=== PATIENT | female | born 1960 | race African-American/Black ===

== ENCOUNTER 2020-01-12 15:56 | Inpatient (IN) | payer OTHER ==
[2020-01-12 17:46] VITALS: BMI 19.5
--- NOTE | 2020-01-12 17:55 | HP ---
COWS - Scale Resting Pulse: 0= [place] 80 or Below Sweatin= Chills/Flushing Restless Observation: 1= Difficult to Sit Still Pupil Size: 1= Pupils >than Normal Bone or Joint Aches: 0= None Runny Nose/ Eye Tearin= Nasal Congestion GI Upset > 30mins: 5=Frequent Vomit/Diarrhea Tremor Observation: 1= Tremor [place], Not Seen Yawning Observation: 0= None Anxiety or Irritability: 2=Irritable/Anxious Goose Flesh Skin: 0=Smooth Skin COWS Score: 12 CIWA Score Nausea/Vomitin-Int. Nausea w/Dry Heave Muscle Tremors: 1-None Visible, but [place] Anxiety: 2 Agitation: 1-Slight > Activity Paroxysmal Sweats: No Perspiration Orientation: 1-Uncertain about Date Tacttile Disturbances: 1-Very Mild Itch/Numbness Auditory Disturbances: 0-None Visual Disturbances: 0-None Headache: 3-Moderate CIWA-Ar Total Score: 13 - Admission Criteria [facility]ASAS Guidelines: Admission for Medically Managed Detox: Requires at least one of the followin. CIWA greater than 12 2. Seizures within the past 24 hours 3. Delirium tremens within the past 24 hours 4. Hallucinations within the past 24 hours 5. Acute intervention needed for co occurring medical disorder 6. Acute intervention needed for co occurring psychiatric disorder 7. Severe withdrawal that cannot be handled at a lower level of care (continued vomiting, continued diarrhea, abnormal vital signs) requiring intravenous medication and/or fluids 8. Admitting History and Physical - Admission History of Present Illness: Patient is a 59 y.o. F PMHx HTN, sciatica LLE, presenting to [facility] for substance abuse. Patient substance abuse consists of [id number] bags a day, 0 overdose. Alcohol 6 pack 24oz malt, 1 pint vodka a day, no seizures, 1 blackout months ago, (+) eye tax appraiser. Crack 30$ a day. Limitations to Obtaining History: No Limitations - Past Medical History [employer]: No: Seizure Cardiovascular: Yes: HTN. No: Hyperlipdemia Pulmonary: No: COPD Gastrointestinal: No: GERD, GI Bleed Hepatobiliary: No: Hepatitis A, Hepatitis B, Hepatitis C Heme/Onc: No: B12 Deficiency Infectious Disease: No: HIV, STD's, Tuberculosis Psych: Yes: Anxiety, Depression Musculoskeletal: Yes: Chronic low back pain - Past Surgical History Additional Past Surgical History: c section, laceration repair abdomen - Smoking History Smoking history: Current every day smoker Have you smoked in the past 12 months: Yes Aproximately how many cigarettes per day: 7 - Alcohol/Substance Use Hx Alcohol Use: Yes History of Substance Use: reports: Cocaine - Social History Usual Living Arrangement: Yes: Other (homeless) ADL: Independent History of Recent Travel: No Admission ROS [facility] - HPI Allergies/Adverse Reactions: Allergies Allergy/AdvReac Type Severity Reaction Status Date / Time No Known Allergies Allergy Verified 01/12/20 17:57 Exam Limitations: No Limitations - Ebola screening Have you traveled outside of the country in the last 21 days: No Have you had contact with anyone from an Ebola affected area: No Have you been sick,other than usual withdrawal symptoms: No Do you have a fever: No - Review of Systems Constitutional: No Symptoms Reported EENT: denies: Blurred Vision, Double Vision Respiratory: denies: Cough, Shortness of Breath Cardiac: denies: Chest Pain, Lightheadedness GI: reports: Diarrhea, Nausea, Vomiting. denies: Constipated : reports: No Symptoms Reported Musculoskeletal: reports: Back Pain Integumentary: reports: No Symptoms Reported. denies: Dryness, Erythema Neuro: reports: Headache, Dizziness Hematology: reports: No Symptoms Reported Psychiatric: reports: No Sypmtoms Reported, Judgement Intact, Mood/Affect Appropiate, Orientated x3, Depressed Patient History - Smoking Cessation Smoking history: Current every day smoker Initiated information on smoking cessation: Yes 'Breaking Loose' booklet given: 01/12/20 Admission Physical Exam [facility] - Vital Signs Vital Signs: Vital Signs - 24 hr 01/12/20 17:43 Temperature 98.1 F Pulse Rate 66 Respiratory 18 Rate Blood Pressure 119/72 - Physical General Appearance: Yes: Within Normal Limits, No Apparent Distress, Appropriately Dressed Respiratory: Yes: No Respiratory Distress, No Accessory Muscle Use, Wheezing Cardiology: Yes: Regular Rhythm, Regular Rate Abdominal: Yes: Normal Bowel Sounds, Non Tender, Flat, Soft. No: Distended, Rebound, Tenderness Back: Yes: Normal Inspection Extremities: Yes: Normal Inspection, Non-Tender Neurological: Yes: Fully Oriented, Alert, Normal Mood/Affect, Normal Response, Numbness (LLE) Integumentary: Yes: Within Normal Limits, Normal Color, Warm - Diagnostic (1) Hypertension Current Visit: Yes Status: Acute (2) Alcohol abuse Current Visit: Yes Status: Acute (3) Alcohol abuse with alcohol-induced disorder Current Visit: Yes Status: Acute (4) Heroin abuse Current Visit: Yes Status: Acute (5) Crack cocaine use Current Visit: Yes Status: Acute (6) Nicotine abuse Current Visit: Yes Status: Acute Cleared for Admission S - Detox or Rehab [facility] Level of Care: Medically Managed Detox Regimen/Protocol: Methadone/Librium Breathalyzer - Breathalyzer Breathalyzer: 0 Vital Signs - Vital Signs Vital signs refused: No Temperature: 98.1 F Pulse Rate: 66 Respiratory Rate: 18 Blood Pressure: 119/72 - Height Height: 1.63 m - Weight Weight: 51.71 kg - BMI Body Mass Index (BMI): 19.5 Urine Drug Screen - Test Device Lot number: [id number] Expiration date: 12/13/21 - Control Is test valid?: Yes - Results Drug screen NEGATIVE: No Urine drug screen results: SUZANNE-Cocaine, FEN-Fentanyl, MOP-Opiates, MTD- Methadone, BZO-Benzodiazepines, BUP-Suboxone Inpatient Rehab Admission - Rehab Decision to Admit Inpatient rehab admission?: No
[2020-01-12] MEDS ORDERED: IBUPROFEN 400 MG TABLET (FP) PO PRN (18:01)
[2020-01-12] MEDS ORDERED: NICOTINE POLACRILEX 2 MG GUM BUC PRN (18:01)
[2020-01-12] MEDS ORDERED: METHOCARBAMOL 500 MG TABLET PO PRN (18:01)
[2020-01-12] MEDS ORDERED: MENTHOL/PHENOL 1 EACH UD MM PRN (18:01)
[2020-01-12] MEDS ORDERED: chlordiazePOXIDE HCL 25 MG CAPSULE PO PRN (18:01)
[2020-01-12] MEDS ORDERED: ONDANSETRON *ODT* 4 MG TABLET SL ONE (18:01)
[2020-01-12] MEDS ORDERED: ACETAMINOPHEN 325 MG TABLET (FP) PO PRN ×2 (18:01)
[2020-01-12] MEDS ORDERED: BISMUTH SUBSALICYLATE 524 MG/30 ML UD PO PRN (18:01)
[2020-01-12] MEDS ORDERED: MAG HYDROX/AL HYDROX/SIMETH 30 ML UNIT-DOSE CUP PO PRN (18:01)
[2020-01-12] MEDS ORDERED: cloNIDine HCL 0.1 MG TABLET PO PRN (18:01)
[2020-01-12] MEDS ORDERED: METHADONE HCL 10 MG TABLET (FOR DETOX USE ONLY) PO ONE (18:01)
[2020-01-12] MEDS ORDERED: MAGNESIUM HYDROX 2400MG/30ML ORAL SUSPENSION 30 ML CUP PO PRN (18:01)
[2020-01-12] MEDS ORDERED: MAGNESIUM CITRATE 300 ML BOTTLE PO PRN (18:01)
[2020-01-12] MEDS ORDERED: NAPROXEN 500 MG TABLET PO ONE (18:06)
[2020-01-12] MEDS: THIAMINE HCL 100 MG TABLET (FP) PO SCH (21:36)
[2020-01-12] MEDS: hydrOXYzine PAMOATE 25 MG CAPSULE (FP) PO SCH (21:42)
[2020-01-12] MEDS: MELATONIN 5 MG TABLETS PO SCH (23:35)
[2020-01-12] MEDS: chlordiazePOXIDE HCL 25 MG CAPSULE PO SCH (23:35)
[2020-01-13] MEDS: hydrOXYzine PAMOATE 25 MG CAPSULE (FP) PO SCH ×6 (05:39→22:51)
[2020-01-13] MEDS: chlordiazePOXIDE HCL 25 MG CAPSULE PO SCH ×4 (05:40→22:50)
[2020-01-13] MEDS ORDERED: METHADONE HCL 10 MG TABLET (FOR DETOX USE ONLY) ONE (08:57)
[2020-01-13] MEDS ORDERED: METHADONE HCL 5 MG TABLET (FOR DETOX USE ONLY) ONE (08:58)
[2020-01-13] MEDS ORDERED: METHADONE (DETOX) 20 MG, METHADONE (DETOX) 5 MG PO ONE (10:00)
[2020-01-13] MEDS: PRENATAL VITAMINS W/ FOLIC ACID TABLET (FP) PO SCH (10:17)
[2020-01-13] MEDS: NICOTINE 7 MG/24 HOURS TOPICAL PATCH TD SCH (10:17)
--- NOTE | 2020-01-13 10:19 | PN ---
Teaching Attending Note Name of Resident: Rene Manuel ATTENDING PHYSICIAN STATEMENT I saw and evaluated the patient. I reviewed the resident's note and discussed the case with the resident. I agree with the resident's findings and plan as documented. SUBJECTIVE: OBJECTIVE: ASSESSMENT AND PLAN: Agree with resident's findings and detox plan.
[2020-01-13 10:55] LABS: HEMATOCRIT 34.6 % (32.4-45.2); HEMOGLOBIN 11.5 GM/dL (10.7-15.3); MCH 34.7 pg (25.7-33.7); MCHC 33.2 g/dl (32.0-36.0); MEAN CELL VOLUME 104.7 fl (80-96); MEAN PLT VOLUME 7.3 fl (7.5-11.1); PLATELET COUNT 333 K/MM3 (134-434); RDW 13.7 % (11.6-15.6); WHITE BLOOD COUNT 4.5 K/mm3 (4.0-10.0)
[2020-01-13 11:13] LABS: ALBUMIN 3.2 g/dl (3.4-5.0); BILIRUBIN,TOTAL 0.6 mg/dL (0.2-1); BLOOD UREA NITROGEN 8.7 mg/dL (7-18); CALCIUM 9.5 mg/dL (8.5-10.1); CREATININE 0.7 mg/dL (0.55-1.3); POTASSIUM 4.5 mmol/L (3.5-5.1)
--- NOTE | 2020-01-13 15:27 | PN ---
[facility] CIWA - CIWA Score Nausea/Vomitin-Mild Nausea/No Vomiting Muscle Tremors: 2 Anxiety: 2 Agitation: 2 Paroxysmal Sweats: No Perspiration Orientation: 0-Oriented Tacttile Disturbances: 1-Very Mild Itch/Numbness Auditory Disturbances: 0-None Visual Disturbances: 0-None Headache: 2-Mild CIWA-Ar Total Score: 10 [facility] COWS - Scale Resting Pulse: 0= [place] 80 or Below Sweatin= No chills or Flushing Restless Observation: 0= Sits Still Pupil Size: 1= Pupils >than Normal Bone or Joint Aches: 1= Mild Discomfort Runny Nose/ Eye Tearin= Runny Nose/Eyes GI Upset > 30mins: 1= Stomach Cramp Tremor Observation of Outstretched Hands: 2= Slight Tremor Visible Yawning Observation: 1= 1-2x During Session Anxiety or Irritability: 2=Irritable/Anxious Goose Flesh Skin: 0=Smooth Skin COWS Score: 10 [facility] Progress Note (SOAP) Subjective: alert,irritable,anxious,interrupted sleep,pain in the body and back,ambulate with own walker Objective: 01/13/20 15:25 Vital Signs Temperature 97.8 F 01/13/20 12:41 Pulse Rate 60 01/13/20 12:41 Respiratory Rate 16 01/13/20 12:41 Blood Pressure 107/68 01/13/20 12:41 O2 Sat by Pulse Oximetry (%) 99 01/13/20 12:41 Assessment: 01/13/20 15:26 withdrawal symptom Plan: continue detox methadone and librium regimen,ambulate with walker,fall precaution
--- NOTE | 2020-01-13 15:30 | EKG ---
Test Reason : Blood Pressure : / mmHG Vent. Rate : 056 BPM Atrial Rate : 056 BPM P-R Int : 192 ms QRS Dur : 086 ms QT Int : 446 ms P-R-T Axes : 039 -07 -17 degrees QTc Int : 430 ms SINUS BRADYCARDIA ANTERIOR INFARCT , AGE UNDETERMINED ABNORMAL ECG NO PREVIOUS ECGS AVAILABLE Confirmed by HUMAIRA SYKES MD ([id number]) on 01/13/2020 3:30:05 PM Referred By: Confirmed By:HUMAIRA SYKES MD
[2020-01-13] MEDS: THIAMINE HCL 100 MG TABLET (FP) PO SCH (22:50)
[2020-01-13] MEDS: MELATONIN 5 MG TABLETS PO SCH (22:51)
[2020-01-14] MEDS: hydrOXYzine PAMOATE 25 MG CAPSULE (FP) PO SCH ×3 (07:01→14:15)
[2020-01-14] MEDS: chlordiazePOXIDE HCL 25 MG CAPSULE PO SCH ×2 (07:01→11:05)
[2020-01-14 07:24] VITALS: BP 159/93; PULSE 60; TEMP 97.7
[2020-01-14] MEDS ORDERED: METHADONE HCL 10 MG TABLET (FOR DETOX USE ONLY) PO ONE (10:00)
--- NOTE | 2020-01-14 10:02 | PN ---
[facility] CIWA - CIWA Score Nausea/Vomitin-No Nausea/No Vomiting Muscle Tremors: 1-None Visible, but [place] Anxiety: 0-No Anxiety, at Ease Agitation: 0-Normal Activity Paroxysmal Sweats: No Perspiration Orientation: 0-Oriented Tacttile Disturbances: 0-None Auditory Disturbances: 0-None Visual Disturbances: 0-None Headache: 0-None Present CIWA-Ar Total Score: 1 [facility] COWS - Scale Resting Pulse: 0= [place] 80 or Below Sweatin= Chills/Flushing Restless Observation: 0= Sits Still Pupil Size: 5= Only [place] Seen Runny Nose/ Eye Tearin= None GI Upset > 30mins: 0= None Tremor Observation of Outstretched Hands: 1= Tremor [place], Not Seen Yawning Observation: 0= None Anxiety or Irritability: 0= None Goose Flesh Skin: 0=Smooth Skin [facility] Progress Note (SOAP) Subjective: Patient examined in the room. Patient was sleeping. Patient had complains of mild tremors and sweating but was otherwise well. Patient in no acute distress. Objective: 01/14/20 10:03 General: Patient alert and in no acute distress, WNWD Mental status: Patient judgment intact MSK/Neuro: Patient MS 5/5, mild tremor Gait: Patient ambulates properly, gait steady 01/14/20 10:04 CBC, BMP 01/13/20 08:10 01/13/20 08:10 Last Vital Signs Temp Pulse Resp BP Pulse Ox 97.7 F 60 16 159/93 100 01/14/20 07:24 01/14/20 07:24 01/14/20 07:24 01/14/20 07:24 01/14/20 08:48 Current Medications Generic Name Dose Route Start Last Admin Trade Name Freq PRN Reason Stop Dose Admin Acetaminophen 650 mg 01/12/20 18:01 Tylenol - PO Q6H PRN PAIN LEVEL 4 - 6 Acetaminophen 650 mg 01/12/20 18:01 Tylenol - PO Q6H PRN FEVER Al Hydroxide/Mg Hydroxide 30 ml 01/12/20 18:01 Mylanta Oral Suspension - PO Q6H PRN DYSPEPSIA Bismuth Subsalicylate 524 mg 01/12/20 18:01 Pepto-Bismol - PO Q1H PRN DIARRHEA Chlordiazepoxide HCl 25 mg 01/14/20 05:00 01/14/20 07:01 Librium - PO 01/14/20 23:01 Not Given [id number] CHRIS Chlordiazepoxide HCl 25 mg 01/12/20 18:01 Librium - PO 01/14/20 23:59 Q4H PRN WITHDRAWAL(CONT SUBST) Chlordiazepoxide HCl 10 mg 01/15/20 05:00 Librium - PO 01/15/20 23:01 [id number] CHRIS Chlordiazepoxide HCl 10 mg 01/16/20 05:00 Librium - PO 01/16/20 17:01 Q12H CHRIS Chlordiazepoxide HCl 10 mg 01/15/20 00:00 Librium - PO 01/16/20 00:00 Q4H PRN WITHDRAWAL(CONT SUBST) Chlordiazepoxide HCl 10 mg 01/17/20 05:00 Librium - PO 01/17/20 05:01 ONCE@0500 ONE Clonidine 0.1 mg 01/12/20 18:01 Catapres - PO 01/14/20 23:59 Q4H PRN Withdrawal Symptoms Eucalyptus/Menthol/Phenol/Sorbitol 1 each 01/12/20 18:01 Cepastat Lozenge - MM 01/18/20 18:01 Q4H PRN SORE THROAT Hydroxyzine Pamoate 25 mg 01/12/20 22:00 01/14/20 07:01 Vistaril - PO 01/18/20 18:01 Not Given Q4HWA CHRIS Magnesium Citrate 300 ml 01/12/20 18:01 Citroma - PO Q48H PRN CONSTIPATION Magnesium Hydroxide 30 ml 01/12/20 18:01 Milk Of Magnesia - PO PRN PRN CONSTIPATION Melatonin 5 mg 01/12/20 22:00 01/13/20 22:51 Melatonin PO Not Given HS CHRIS Methadone HCl 5 mg 01/17/20 06:00 Dolophine - PO 01/17/20 06:01 ONCE@0600 ONE Methadone HCl 10 mg 01/16/20 10:00 Dolophine - PO 01/16/20 10:01 ONCE ONE Methadone HCl 10 mg/ Methadone 15 mg 01/15/20 10:00 HCl 5 mg PO 01/15/20 10:01 ONCE ONE Methocarbamol 500 mg 01/12/20 18:01 Robaxin - PO 01/18/20 18:01 Q6H PRN MUSCLE SPASMS Nicotine 7 mg 01/13/20 10:00 01/13/20 10:17 Nicoderm Patch - TD Not Given DAILY CHRIS Nicotine Polacrilex 2 mg 01/12/20 18:01 Nicorette Gum - BUC Q2H PRN NICOTINE REPLACEMENT RX Multivit/Folic Acid/Iron 1 tab 01/13/20 10:00 01/13/20 10:17 Vitamins (Sjr) - PO 1 tab DAILY CHRIS Administration Thiamine HCl 100 mg 01/12/20 22:00 01/13/20 22:50 Vitamin B1 - PO 100 mg HS CHRIS Administration Discontinued Medications Generic Name Dose Route Start Last Admin Trade Name Freq PRN Reason Stop Dose Admin Chlordiazepoxide HCl 50 mg 01/12/20 23:00 01/13/20 22:50 Librium - PO 01/13/20 23:01 50 mg [id number] CHRIS Administration Ibuprofen 400 mg 01/12/20 18:01 Motrin - PO Q6H PRN PAIN LEVEL 1 - 3 Methadone HCl 30 mg 01/12/20 18:01 01/12/20 21:35 Dolophine - PO 01/12/20 18:02 30 mg ONCE ONE Administration Methadone HCl 20 mg 01/14/20 10:00 Dolophine - PO 01/14/20 10:01 ONCE ONE Methadone HCl 20 mg/ Methadone 25 mg 01/13/20 10:00 01/13/20 10:17 HCl 5 mg PO 01/13/20 10:01 25 mg ONCE ONE Administration Naproxen 250 mg 01/12/20 18:06 01/12/20 21:35 Naprosyn - PO 01/12/20 18:07 250 mg ONCE ONE Administration Ondansetron HCl 4 mg 01/12/20 18:01 01/12/20 21:33 Zofran Odt - SL 01/12/20 18:02 4 mg ONCE ONE Administration Tuberculin PPD 5 units 01/12/20 18:03 01/12/20 21:42 Tubersol ([facility] Only) 5ml Vial ID 01/12/20 18:04 0.1 ml ONCE ONE Administration Assessment: 01/14/20 10:04 1. Patient on methadone protocol due to heroin use. 2. Patient on librium protocol due to alcohol abuse. 01/14/20 10:06 Plan: 1. Patient continued on methadone protocol for heroin substance abuse. 2. Patient on librium taper protocol for alcohol abuse
--- NOTE | 2020-01-14 10:26 | DS ---
[facility] Detox Discharge Summary Admission Date: 01/12/20 Discharge Date: 01/14/20 - History Present History: Alcohol Dependence, Opioid Dependence - Physical Exam Results Vital Signs: Vital Signs Temperature 97.7 F 01/14/20 07:24 Pulse Rate 60 01/14/20 07:24 Respiratory Rate 16 01/14/20 07:24 Blood Pressure 159/93 01/14/20 07:24 O2 Sat by Pulse Oximetry (%) 100 01/14/20 08:48 Pertinent Admission Physical Exam Findings: Pt seen on am rounds PE: Gnl: WDWN, in no distress Gait: steady Coordination: nl - Medication Discharge Medications: Ambulatory Orders Amlodipine Besylate [Norvasc -] 10 mg PO DAILY 01/12/20 NK [No Known Home Medication] 01/12/20 - AMA Did Patient Leave Against Medical Advice: Yes (Patient refusing vitals, refusing meds, walked off unit.)
[2020-01-14] MEDS: PRENATAL VITAMINS W/ FOLIC ACID TABLET (FP) PO SCH (11:05)
[2020-01-14] MEDS: NICOTINE 7 MG/24 HOURS TOPICAL PATCH TD SCH (11:05)
[2020-01-15] MEDS ORDERED: chlordiazePOXIDE HCL 10 MG CAPSULE PO PRN
[2020-01-15] MEDS ORDERED: chlordiazePOXIDE HCL 10 MG CAPSULE PO SCH (05:00)
[2020-01-15] MEDS ORDERED: METHADONE (DETOX) 10 MG, METHADONE (DETOX) 5 MG PO ONE (10:00)
[2020-01-16] MEDS ORDERED: chlordiazePOXIDE HCL 10 MG CAPSULE PO SCH (05:00)
[2020-01-16] MEDS ORDERED: METHADONE HCL 10 MG TABLET (FOR DETOX USE ONLY) PO ONE (10:00)
[2020-01-17] MEDS ORDERED: chlordiazePOXIDE HCL 10 MG CAPSULE PO ONE (05:00)
[2020-01-17] MEDS ORDERED: METHADONE HCL 5 MG TABLET (FOR DETOX USE ONLY) PO ONE (06:00)
== END 2020-01-14 15:19 | disposition left against medical advice (07) | DRG 770 ==
LOC: YASAS 15:56 → Y3N 18:41
PROVIDERS: ADMIT Allergy & Immunology; ATTEND Allergy & Immunology
PROC: HZ2ZZZZ Detoxification Services for Substance Abuse Treatment (ICD-10-PCS; principal; 2020-01-12)
DX: F10.230 Alcohol dependence with withdrawal, uncomplicated (principal); F11.23 Opioid dependence with withdrawal; F14.10 Cocaine abuse, uncomplicated; F41.9 Anxiety disorder, unspecified; F32.9 Major depressive disorder, single episode, unspecified; I10 Essential (primary) hypertension; M54.31 Sciatica, right side; Z99.89 Dependence on other enabling machines and devices; Z59.0 Homelessness
CPT/HCPCS: 36415; 80053; 85027; 86780; 93005; 93010; Q0162; U0003

== ENCOUNTER 2023-11-25 11:41 | Inpatient (IN) | payer OTHER ==
[2023-11-25 12:05] VITALS: BMI 25.0
[2023-11-25] MEDS ORDERED: NICOTINE POLACRILEX 2 MG GUM BUC PRN (14:36)
[2023-11-25] MEDS ORDERED: NALOXONE (NARCAN) HCL 4 MG/0.1 ML SPRAY NS PRN (14:36)
[2023-11-25] MEDS ORDERED: BENZONATATE 200 MG CAPSULE PO PRN (14:36)
[2023-11-25] MEDS ORDERED: NALOXONE HCL 0.4 MG/ML VIAL IM PRN (14:36)
[2023-11-25] MEDS ORDERED: ONDANSETRON *ODT* 4 MG TABLET SL PRN (14:36)
[2023-11-25] MEDS ORDERED: guaiFENesin 600 MG TABLET.ER (FP) PO PRN (14:36)
[2023-11-25] MEDS ORDERED: MAGNESIUM HYDROX 2400MG/30ML ORAL SUSPENSION 30 ML CUP PO PRN (14:36)
[2023-11-25] MEDS ORDERED: ACETAMINOPHEN 325 MG TABLET (FP) PO PRN (14:36)
[2023-11-25] MEDS ORDERED: BENZOCAINE/MENTHOL (CHLORASEPTIC ) LOZENGE MM PRN (14:36)
[2023-11-25] MEDS ORDERED: LOPERAMIDE HCL 2 MG CAPSULE PO PRN (14:36)
[2023-11-25] MEDS ORDERED: POLYETHYLENE GLYCOL (HEALTHYLAX) 3350 17 GM PACKET PO PRN (14:36)
[2023-11-25] MEDS ORDERED: IBUPROFEN 400 MG TABLET (FP) PO PRN (14:36)
[2023-11-25] MEDS ORDERED: BISMUTH SUBSALICYLATE 262 MG/15 ML BTL PO PRN (14:36)
[2023-11-25] MEDS ORDERED: MAG HYDROX/AL HYDROX/SIMETH 30 ML UNIT-DOSE CUP PO PRN (14:36)
[2023-11-25] MEDS: THIAMINE 100 MG TABLET PO SCH (22:50)
[2023-11-25] MEDS: MELATONIN 5 MG TABLETS PO SCH (22:50)
[2023-11-25] MEDS: IBUPROFEN 600 MG TABLET (FP) PO PRN (22:50)
[2023-11-25] MEDS: hydrOXYzine PAMOATE 25 MG CAPSULE (FP) PO PRN (22:51)
[2023-11-26] MEDS ORDERED: diazePAM 5 MG TABLET PO PRN (08:47)
[2023-11-26] MEDS ORDERED: cloNIDine HCL 0.1 MG TABLET PO PRN (08:47)
[2023-11-26] MEDS: methaDONE HCL 10 MG TABLET (FOR DETOX USE ONLY) PO ONE (09:31)
[2023-11-26] MEDS: amLODIPine BESYLATE 10 MG TABLET (FP) PO SCH (09:33)
[2023-11-26] MEDS: NICOTINE 14 MG/24 HOURS TOPICAL PATCH TD SCH (09:35)
[2023-11-26] MEDS: PRENATAL VITAMINS W/ FOLIC ACID TABLET (FP) PO SCH (09:36)
[2023-11-26] MEDS: diazePAM 5 MG TABLET PO SCH (10:24)
[2023-11-26 11:46] LABS: HEMATOCRIT 32.1 % (32.4-45.2); HEMOGLOBIN 10.6 GM/dL (10.7-15.3); MCH 31.8 pg (25.7-33.7); MEAN CELL VOLUME 96.4 fl (80-96); MEAN PLT VOLUME 7.2 fl (7.5-11.1); PLATELET COUNT 310 10^3/uL (134-434); RBC 3.33 M/mm3 (3.60-5.2); RDW 14.8 % (11.6-15.6); WHITE BLOOD COUNT 4.7 K/mm3 (4.0-10.0)
[2023-11-26 11:59] LABS: CHLORIDE 107 mmol/L (98-107); POTASSIUM 3.5 mmol/L (3.5-5.1); SODIUM 140 mmol/L (136-145)
[2023-11-26 12:04] LABS: ALBUMIN 3.4 g/dl (3.4-5.0); ANION GAP 6 mmol/L (4-13); CALCIUM 9.4 mg/dL (8.5-10.1); CO2 28 mmol/L (21-32); GLUCOSE,RANDOM 156 mg/dL (74-106)
[2023-11-26 12:07] LABS: CREATININE 0.8 mg/dL (0.55-1.3); SGOT/AST 18 U/L (15-37); SGPT/ALT 20 U/L (13-61)
[2023-11-26 12:10] LABS: ALK PHOS 88 U/L (45-117); BILIRUBIN,TOTAL 0.6 mg/dL (0.2-1)
[2023-11-26 21:06] VITALS: RESP 16
[2023-11-27 18:15] VITALS: BP 130/64; PULSE 69; TEMP 98.4
[2023-11-28] MEDS ORDERED: diazePAM 5 MG TABLET PO SCH (06:00)
[2023-11-28] MEDS ORDERED: methaDONE HCL 10 MG TABLET (FOR DETOX USE ONLY) PO ONE (10:00)
[2023-11-29] MEDS ORDERED: diazePAM 5 MG TABLET PO SCH (06:00)
[2023-11-30] MEDS ORDERED: diazePAM 5 MG TABLET PO ONE (06:00)
[2023-11-30] MEDS ORDERED: methaDONE HCL 10 MG TABLET (FOR DETOX USE ONLY) PO ONE (10:00)
== END 2023-11-27 20:10 | disposition left against medical advice (07) | DRG 770 ==
LOC: YASAS 11:41 → Y6N 14:47
PROVIDERS: ADMIT Allergy & Immunology; ATTEND Surgery
PROC: HZ2ZZZZ Detoxification Services for Substance Abuse Treatment (ICD-10-PCS; principal; 2023-11-25)
DX: F11.23 Opioid dependence with withdrawal (principal); F10.230 Alcohol dependence with withdrawal, uncomplicated; F14.20 Cocaine dependence, uncomplicated; F15.20 Other stimulant dependence, uncomplicated; F17.210 Nicotine dependence, cigarettes, uncomplicated; F41.9 Anxiety disorder, unspecified; I10 Essential (primary) hypertension; M54.50 Low back pain, unspecified; G89.29 Other chronic pain; R73.9 Hyperglycemia, unspecified; Z99.89 Dependence on other enabling machines and devices
CPT/HCPCS: 36415; 80053; 80305; 80307; 85027; 86780